=== PATIENT | female | born 1995 | race Hispanic/Latino ===

== ENCOUNTER 2017-06-16 11:00 | Inpatient (IN) | payer MEDICAID ==
[~2017-06-16 11:00] MED LIST: DOCU-116 PO; IBUP-2077 PO; TYL3 PO
[2017-06-19 18:59] LABS: HEMATOCRIT 33.5 % (36-48); MEAN CORPUSCULAR HEMOGLOBIN 28.6 pg (27.0-33.0); MEAN CORPUSCULAR HGB CONC 33.8 g/dL (32.0-36.0); MEAN CORPUSCULAR VOLUME 84.5 fL (79-99); PLATELET COUNT (AUTO) 260 K/uL (130-400); RED BLOOD CELL COUNT(AUTO) 3.97 MIL/uL (4.00-5.50); RED CELL DISTRIBUTION WIDTH 18.3 % (11.0-15.5); WHITE BLOOD COUNT (AUTO) 10.5 K/uL (4.8-10.8)
[2017-06-20] MEDS ORDERED: CEFAZOLIN SODIUM 1 GM VIAL IVP PRN (07:00)
[2017-06-20] MEDS: LACTATED RINGERS 1000ML 1,000 ML IV SCH ×2 (07:38→11:59)
[2017-06-20] MEDS ORDERED: DURAMORPH PF1 MG/ML 10ML AMP IV ONE (07:57)
[2017-06-20] MEDS ORDERED: SUCCINYLCHOLINE 200MG/10ML SYR ONE (08:03)
[2017-06-20] MEDS ORDERED: OXYTOCIN 10 UNIT/1ML 10ML VIAL ONE (08:10)
[2017-06-20] MEDS ORDERED: MIDAZOLAM HCL 1 MG/ML 2ML VIAL ONE (08:11)
[2017-06-20] MEDS ORDERED: ONDANSETRON HCL 4 MG/2 ML VIAL ONE (08:33)
[2017-06-20] MEDS ORDERED: FENTANYL CITRATE PF 50 MCG/1 ML 2ML VIAL ONE (08:44)
[2017-06-20] MEDS ORDERED: OXYTOCIN-LR 20 UNITS/1000 ML 1,000 ML IV PRN (09:06)
[2017-06-20] MEDS ORDERED: PROMETHAZINE HCL 25 MG/ML 1ML AMPULE IM PRN ×2 (09:15→13:45)
[2017-06-20] MEDS ORDERED: SODIUM CHLORIDE 0.9% 10 ML VIAL IVP PRN (09:15)
[2017-06-20] MEDS ORDERED: MEPERIDINE-PF 75 MG/ML SYG IM PRN (09:15)
[2017-06-20] MEDS ORDERED: LACTATED RINGERS 1000ML 1,000 ML IV ONE (11:54)
[2017-06-20] MEDS ORDERED: OXYTOCIN 10 USP UNITS/ML ONE (11:55)
[2017-06-20 12:15] VITALS: BP 109/46
[2017-06-20] MEDS ORDERED: PREN1COM14 PO (12:28)
[2017-06-20] MEDS ORDERED: FERR-82 PO (12:28)
[2017-06-20] MEDS ORDERED: ONDANSETRON HCL 4 MG/2 ML VIAL IVP PRN ×2 (13:45)
[2017-06-20] MEDS ORDERED: DiphenhydrAMINE HCL 50 MG/ML VIAL IVP PRN (13:45)
[2017-06-20] MEDS ORDERED: MORPHINE SULFATE 2 MG/ML 1ML SYG IVP PRN (13:45)
[2017-06-20] MEDS ORDERED: EPHEDRINE SULFATE 50 MG/ML AMPULE IVP PRN (13:45)
[2017-06-20] MEDS ORDERED: METOCLOPRAMIDE 10 MG/2 ML VIAL IVP PRN (13:45)
[2017-06-20] MEDS ORDERED: NALOXONE HCL 0.4 MG/1 ML ML IVP PRN (13:45)
[2017-06-20] MEDS ORDERED: HYDROCODONE/ACETAMINOPHEN 5/325 MG TAB PO PRN ×2 (13:45)
[2017-06-20] MEDS ORDERED: ONDANSETRON HCL 4 MG/2 ML 8 MG in SODIUM CHLORIDE 0.9% 50 ML IVP NR (13:45)
[2017-06-20 15:51] VITALS: BP 106/47
[2017-06-20] MEDS: DEXTROSE 5 %-0.45 % NACL 1,000 ML IV PRN (18:31)
[2017-06-20 19:35] VITALS: BP 115/66
[2017-06-20 23:41] VITALS: BP 111/60
[2017-06-21] MEDS: DEXTROSE 5 %-0.45 % NACL 1,000 ML IV PRN ×2 (01:43→08:21)
[2017-06-21 04:05] VITALS: BP 117/65
[2017-06-21 06:15] LABS: HEPATITIS Bs ANTIGEN SCREEN P Negative (Negative)
[2017-06-21 07:00] LABS: BASOPHILS % (AUTO) 0.3 % (0.0-5.0); EOSINOPHILS % (AUTO) 0.7 % (0.0-8.0); HEMATOCRIT 30.1 % (36-48); LYMPHOCYTES % (AUTO) 15.9 % (21.0-51.0); MEAN CORPUSCULAR HEMOGLOBIN 29.2 pg (27.0-33.0); MEAN CORPUSCULAR HGB CONC 34.3 g/dL (32.0-36.0); MEAN CORPUSCULAR VOLUME 85.1 fL (79-99); MONOCYTES % (AUTO) 5.8 % (3.0-13.0); NEUTROPHILS % (AUTO) 77.3 % (40.0-77.0); PLATELET COUNT (AUTO) 223 K/uL (130-400); RED BLOOD CELL COUNT(AUTO) 3.54 MIL/uL (4.00-5.50); RED CELL DISTRIBUTION WIDTH 18.2 % (11.0-15.5)
[2017-06-21 07:26] VITALS: BP 112/55
[2017-06-21] MEDS ORDERED: LANOLIN 30GM OINTMENT TP PRN (08:45)
[2017-06-21] MEDS: IBUPROFEN 800 MG TAB PO SCH ×4 (08:45→17:56)
[2017-06-21] MEDS ORDERED: DIPHENHYDRAMINE HCL 25 MG CAPSULE PO PRN (08:45)
[2017-06-21] MEDS ORDERED: BISACODYL 10 MG SUPP.RECT RC PRN (08:45)
[2017-06-21] MEDS: SIMETHICONE 80 MG TAB.CHEW PO PRN ×2 (10:07→20:43)
[2017-06-21 11:29] VITALS: BP 102/63
[2017-06-21 15:42] VITALS: BP 115/58
[2017-06-21] MEDS ORDERED: DIPH,PERTUSS(ACELL),TET VAC/PF 0.5 ML VIAL IM ONE (19:00)
[2017-06-21 19:32] VITALS: BP 121/80
[2017-06-21 23:07] VITALS: BP 115/58
[2017-06-22] MEDS: IBUPROFEN 800 MG TAB PO SCH ×3 (00:45→09:49)
[2017-06-22 03:14] VITALS: BP 111/59
[2017-06-22 07:35] VITALS: BP 113/69
[2017-06-22] MEDS: SIMETHICONE 80 MG TAB.CHEW PO PRN (09:49)
[2017-06-22 11:18] VITALS: BP 114/70
== END 2017-06-22 13:30 | disposition home or self-care (01) | DRG 540 ==
LOC: EDSTATUS 11:00 → LDH 06-19 16:43 → UNDOADMIN 06-19 16:43 → LDH 06-20 05:40 → WSH 06-20 12:08
PROVIDERS: ADMIT Specialist; ATTEND Specialist
PROC: 3E0234Z Introduction of Serum, Toxoid and Vaccine into Muscle, Percutaneous Approach (ICD-10-PCS; 2017-06-20)
PROC: 10D00Z1 Extraction of Products of Conception, Low, Open Approach (ICD-10-PCS; principal; 2017-06-20 08:00)
DX: O34.211 Maternal care for low transverse scar from previous cesarean delivery (principal); Z23 Encounter for immunization; Z37.0 Single live birth; Z3A.39 39 weeks gestation of pregnancy
CPT/HCPCS: 36415; 59510; 85025; 85027; 86592; 86850; 86900; 86901; 87340; 90715; A4344; A4606; J0330; J0690; J2250; J2274; J2405; J2590; J3010; J7120

== ENCOUNTER 2021-09-26 08:25 | Emergency (ER) | payer MEDICAID, OTHER ==
[~2021-09-26] VITALS: Ht 149.9 cm; Wt 70.3 kg
[~2021-09-26 08:25] MED LIST changes: -DOCU-116 PO; +FERR-82 PO; -IBUP-2077 PO; +PREN1COM14 PO; -TYL3 PO
[2021-09-26 09:18] LABS: APPEARANCE,URINE Cloudy (CLEAR); BILIRUBIN,URINE Negative (NEGATIVE); COLOR,URINE Dark Yellow (YELLOW); GLUCOSE, URINE (UA) Negative (NEGATIVE); KETONES,URINE 40 mg/dL (NEGATIVE); LEUKOCYTE ESTERASE ,URINE Moderate (NEGATIVE); NITRATE,URINE Negative (NEGATIVE); OCCULT BLOOD,URINE Negative (NEGATIVE); PH,URINE 6.5 (5.0-8.0); PROTEIN,URINE POS 1+ mg/dL (NEGATIVE)
[2021-09-26 09:27] LABS: HCG,QUAL RESULT NEGATIVE (NEGATIVE)
[2021-09-26 09:28] LABS: BACTERIA,URINE Many /HPF (None Seen); RBC,URINE 0-1 /HPF (0-1)
[2021-09-26 09:29] LABS: MUCUS,URINE Few LPF (None Seen); SQUAMOUS EPITHELIAL CELL,UR 0-2 /HPF (0-2)
[2021-09-26] MEDS ORDERED: LORAZEPAM 2 MG/ML 1 ML VIAL IM ONE (09:30)
[2021-09-26] MEDS ORDERED: CEPH500B PO (09:56)
[2021-09-26] MEDS ORDERED: HYD25 PO (09:56)
[2021-09-26 09:58] VITALS: BP 121/82
[2021-09-26] MEDS ORDERED: CEPHALEXIN 500 MG CAPSULE PO ONE (10:00)
== END 2021-09-26 10:04 | disposition home or self-care (01) ==
LOC: EDH 08:25
DX: N39.0 Urinary tract infection, site not specified (principal); F41.9 Anxiety disorder, unspecified; Z79.899 Other long term (current) drug therapy
CPT/HCPCS: 81001; 81025; 87077; 87088; 87186; 96372; 99283; J2060

== ENCOUNTER 2023-01-28 18:40 | Emergency (ER) | payer MEDICAID, OTHER ==
[~2023-01-28] VITALS: Ht 149.9 cm; Wt 73.5 kg
[~2023-01-28 18:40] MED LIST changes: +CEPH500B PO; +HYD25 PO
[2023-01-28 19:40] VITALS: BP 122/77; PULSE 65; RESP 16
[2023-01-28 21:27] LABS: HCG,QUALITATIVE URINE POSITIVE (NEGATIVE)
[2023-01-28 21:28] LABS: APPEARANCE,URINE CLEAR (CLEAR); BILIRUBIN,URINE NEGATIVE (NEGATIVE); COLOR,URINE YELLOW (YELLOW); GLUCOSE, URINE (UA) NEGATIVE (NEGATIVE); KETONES,URINE NEGATIVE (NEGATIVE); LEUKOCYTE ESTERASE ,URINE NEGATIVE Leu/uL (NEGATIVE); NITRATE,URINE NEGATIVE (NEGATIVE); OCCULT BLOOD,URINE NEGATIVE (NEGATIVE); PROTEIN,URINE 20 mg/dL (NEGATIVE)
[2023-01-28 21:30] LABS: ADD UA MICROSCOPIC YES
[2023-01-28 21:36] LABS: MUCUS,URINE RARE LPF (None Seen); SQUAMOUS EPITHELIAL CELL,UR FEW /HPF (0-2)
[2023-01-28] MEDS ORDERED: ACETAMINOPHEN 500 MG TABLET PO ONE (22:00)
[2023-01-28] MEDS ORDERED: METOCLOPRAMIDE 10 MG/2 ML VIAL IM ONE (22:00)
[2023-01-28 22:06] LABS: BASOPHILS # (AUTO) 0.06 K/uL (0.00-0.20); BASOPHILS % (AUTO) 0.6 % (0.0-5.0); EOSINOPHILS # (AUTO) 0.11 K/uL (0.00-0.70); HEMATOCRIT 35.9 % (36-48); IMMATURE GRANULOCYTE ABSOLUTE 0.03 K/uL (0-1); LYMPHOCYTES # (AUTO) 3.4 K/uL (1.0-4.8); LYMPHOCYTES % (AUTO) 31.7 % (21.0-51.0); MEAN CORPUSCULAR HEMOGLOBIN 29.4 pg (27.0-33.0); MEAN CORPUSCULAR HGB CONC 33.4 g/dL (32.0-36.0); MONOCYTES # (AUTO) 0.5 K/uL (0.1-1.0); MONOCYTES % (AUTO) 4.9 % (3.0-13.0); NEUTROPHILS # (AUTO) 6.6 K/uL (1.8-7.7); NEUTROPHILS % (AUTO) 61.5 % (40.0-77.0); PLATELET COUNT (AUTO) 266 K/uL (130-400); RED BLOOD CELL COUNT(AUTO) 4.08 MIL/uL (4.00-5.50); WHITE BLOOD COUNT (AUTO) 10.7 K/uL (4.8-10.8)
[2023-01-28 22:46] LABS: ALBUMIN 3.9 g/dL (3.5-5.0); BILIRUBIN,TOTAL 0.4 mg/dL (0.2-1.0); CREATININE 0.6 mg/dL (0.5-1.5); TOTAL PROTEIN, SERUM 7.9 g/dL (6.0-8.3)
== END 2023-01-28 22:40 | disposition left against medical advice (07) ==
LOC: EDH 18:40
DX: R51.9 Headache, unspecified (principal); R42 Dizziness and giddiness; Z79.899 Other long term (current) drug therapy; Z98.890 Other specified postprocedural states
CPT/HCPCS: 99283; 80053; 84702; 85025; 81001; 81025; 36415; 96372; J2765

== ENCOUNTER 2023-05-07 21:32 | Emergency (ER) | payer MEDICAID ==
[~2023-05-07] VITALS: Ht 149.9 cm; Wt 73.9 kg
[2023-05-07 22:02] LABS: APPEARANCE,URINE CLOUDY (CLEAR); BILIRUBIN,URINE NEGATIVE (NEGATIVE); COLOR,URINE LIGHT-YELLOW (YELLOW); GLUCOSE, URINE (UA) NEGATIVE (NEGATIVE); KETONES,URINE 10 mg/dL (NEGATIVE); LEUKOCYTE ESTERASE ,URINE 75 Leu/uL (NEGATIVE); NITRATE,URINE NEGATIVE (NEGATIVE); OCCULT BLOOD,URINE NEGATIVE (NEGATIVE); PH,URINE 5.5 (5.0-8.0); PROTEIN,URINE NEGATIVE (NEGATIVE); UROBILINOGEN,URINE 0.2 mg/dL (0.2-1.0)
[2023-05-07 22:04] LABS: HCG,QUALITATIVE URINE NEGATIVE (NEGATIVE)
[2023-05-07 22:05] LABS: ADD UA MICROSCOPIC YES
[2023-05-07 22:07] LABS: BACTERIA,URINE MOD /HPF (None Seen); MUCUS,URINE FEW LPF (None Seen); SQUAMOUS EPITHELIAL CELL,UR MANY /HPF (0-2)
[2023-05-07 22:10] LABS: RAPID GROUP A STREP negative (NEGATIVE)
[2023-05-07 22:14] LABS: SARS-CoV-2, RNA, NAAT NEGATIVE SARS CoV-2 (NEGATIVE)
[2023-05-07 22:20] LABS: INFLUENZA TYPE A Negative For Type A (NEGATIVE); INFLUENZA TYPE B Negative For Type B (NEGATIVE)
[2023-05-07] MEDS ORDERED: DEXAMETHASONE SOD PHOSPHATE 4 MG/ML 1ML VIAL IV ONE (22:30)
[2023-05-07] MEDS ORDERED: KETOROLAC 30MG VIAL (30MG/ML) IVP ONE (22:30)
[2023-05-07] MEDS ORDERED: BUTA-271 PO (22:34)
[2023-05-07] MEDS ORDERED: CYCL-309 PO (22:34)
[2023-05-07] MEDS ORDERED: MACR100 PO (22:34)
[2023-05-07 22:36] VITALS: BP 132/68; PULSE 68; RESP 18; O2SAT 100
[2023-05-07] MEDS ORDERED: CYCLOBENZAPRINE HCL 10 MG TABLET ONE (22:38)
[2023-05-07] MEDS ORDERED: CYCLOBENZAPRINE HCL 10 MG TABLET PO ONE (23:00)
== END 2023-05-07 22:42 | disposition home or self-care (01) ==
LOC: EDH 21:32
DX: G44.209 Tension-type headache, unspecified, not intractable (principal); N39.0 Urinary tract infection, site not specified; M26.603 Bilateral temporomandibular joint disorder, unspecified; Z20.822 Contact with and (suspected) exposure to COVID-19
CPT/HCPCS: 99284; 96374; 87635; 96375; 87088; 87880; 87804 ×2; 81001; 81025; J1100; J1885

== ENCOUNTER 2024-06-15 12:30 | Emergency (ER) | payer MEDICAID ==
[~2024-06-15] VITALS: Ht 149.9 cm; Wt 81.6 kg
[~2024-06-15 12:30] MED LIST changes: +BUTA-271 PO; +CYCL-309 PO; +MACR100 PO
--- NOTE | 2024-06-15 12:39 | ERN ---
ED Note History of Present Illness Stated Complaint: CHEST, STOMACH AND LOWER BACK PAIN Time Seen by MD: 12:32 Dictation: PATIENT IS A 29-YEAR-OLD FEMALE COMING IN TODAY WITH COMPLAINTS OF CHEST PAIN AND ABDOMINAL PAIN WITH LOW BACK PAIN SHE HAS HAD FOR ONE WEEK. SHE DENIES FEVER CHILLS NAUSEA VOMITING NO FLANK PAIN AND NO CHANGE IN URINATION. SHE DOES NOT HAVE A PRIMARY CARE DOCTOR HOWEVER SHE SAW HER NEUROLOGIST YESTERDAY WHO ADVISED HER SHE NEEDED AN MRI OF THE LOW SPINE. 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 Allergies: Coded Allergies: No Known Drug Allergies (Unverified Allergy, Unknown, 01/19/15) Home Meds Active Scripts Cyclobenzaprine HCl (Cyclobenzaprine HCl) 10 Mg Tablet, 10 MG PO HSPRN PRN for JAW PAIN, #30 TAB Prov:LOULOU CHURCH NP 05/07/23 Nitrofurantoin/Nitrofuran Mac (Macrobid) 100 Mg Cap, 100 MG PO BID for 7 Days, #14 CAP Prov:LOULOU CHURCH NP 05/07/23 Butalb/Acetaminophen/Caffeine (Esgic 50-325-40 mg Tablet) 50 Mg-325 Mg-40 Mg Tablet, 2 EACH PO Q4PRN PRN for HEADACHE, #40 TAB 2 tablets every 4 hours as needed headache, maximum 6 tablets in 24 hours. Prov:LOULOU CHURCH NP 05/07/23 Cephalexin Monohydrate (Keflex) 500 Mg Cap, 500 MG PO BID for 5 Days, #10 CAP Prov:INES SHAVER MD 09/26/21 Hydroxyzine HCl (Atarax) 25 Mg Tab, 25 MG PO TID for ANXIETY, #20 TAB Prov:INES SHAVER MD 09/26/21 Reported Medications Ferrous Sulfate (Iron) 325 Mg Tablet, 325 MG PO HS, TAB 06/20/17 Cmb#95/Iron/FA/Dha ( + Dha Combo Pack) 1 Each Combo..pkg, 1 EACH PO HS, COMB.PKG 06/20/17 Past Medical History Past Medical History: Migraines Surgical History: Surgical History Other: BREAST REDUCTION Social History: Negative, Lives with family History: Not Applicable : 2 Para: 1 Aborts: 0 RN Note Reviewed/Agreed w/PFSH: Yes Review of System Dictation CONSTITUTIONAL: NEGATIVE EXCEPT FOR HPI HEAD/FACE: NEGATIVE EXCEPT FOR HPI EENT: NEGATIVE EXCEPT FOR HPI RESPIRATORY: NEGATIVE EXCEPT FOR HPI DIFFUSE CHEST PAIN GASTROINTESTINAL/ABDOMINAL: NEGATIVE EXCEPT FOR HPI DIFFUSE ABDOMINAL PAIN GENITOURINARY: NEGATIVE EXCEPT FOR HPI MUSCULOSKELETAL: NEGATIVE EXCEPT FOR HPI LOW BACK PAIN INTEGUMENTARY: NEGATIVE EXCEPT FOR HPI NEUROLOGICAL/PSYCH: NEGATIVE EXCEPT FOR HPI HEMATOLOGIC/LYMPHATIC: NEGATIVE EXCEPT FOR HPI ALL SYSTEMS NEGATIVE, EXCEPT NOTED ABOVE. 13 POINT REVIEW OF SYSTEMS ASSESSED AND ALL NEGATIVE EXCEPT FOR ABOVE. Initial Vital Sign VS Vital Signs Date Time Temp Pulse Resp B/P (MAP) Pulse Ox O2 Delivery O2 Flow Rate FiO2 06/15/24 13:15 97.9 84 122/76 99 Room Air 06/15/24 15:59 18 0 21 Physical Exam Dictation VITAL SIGNS REVIEWED GENERAL APPEARANCE: ALERT, ORIENTED X 3, NO ACUTE DISTRESS, WELL DEVELOPED, NOURISHED. HEAD AND FACE: NON-TRAUMATIC. EYES: PERRL, PINK CONJUNCTIVAS, EYELID NO TRAUMA, ANTERIOR CHAMBER WITH ARCUS SENILIS. EARS: PINNAS INTACT AND NO SIGNS OF TRAUMA OR ERYTHEMA EAR CANALS CLEAR AND NO DISCHARGE TM NO ERYTHEMA NOSE: NO DISCHARGE, NO BLEEDING. OROPHARYNX: MOUTH NORMAL, TONGUE PINK, PHARYNX CLEAR,NO ERYTHEMA, TONSILS NO EXUDATES, NO ABSCESSES NOTED, MUCOUS MEMBRANE MOIST NECK: SUPPLE, NON-TENDER, NO THYROMEGALY, NO MASSES, NO JVD, NO BRUITS BREAST:DEFERRED CHEST:NO TENDERNESS, NO CREPITUS, NO PARADOXICAL MOVEMENT, NO RETRACTIONS LUNGS:CLEAR, WELL-VENTILATED, SYMMETRIC, NO RALES, NO WHEEZING, NO RHONCHI, NO STRIDOR, GOOD BREATH SOUNDS BILATERALLY HEART: REGULAR RATE, REGULAR RHYTHM, NO MURMUR, NO GALLOPS VASCULAR: NO PERIPHERAL EDEMA, ABDOMEN: SOFT, POSITIVE BOWEL SOUNDS, NONDISTENDED, NO GUARDING, NONTENDER, NO REBOUND, NO MASSES NO HEPATOMEGALY, NO SPLENOMEGALY, NO PERRY'S SIGN, NO HERNIAS. NO FOCAL TENDERNESS RECTAL: DEFERRED GENITAL: DEFERRED NEUROLOGICAL: NORMAL SPEECH, MOTOR FUNCTION INTACT, SENSORY FUNCTION INTACT MUSCULOSKELETAL: NECK NONTENDER, FULL RANGE OF MOTION, BACK NONTENDER, FULL RANGE OF MOTION, EXTREMITIES: NONTENDER, FULL RANGE OF MOTION SKIN: COLOR PINK, DRY, NO TURGOR, NO RASH, NO LACERATIONS, NO ABRASIONS, NO CONTUSIONS. LYMPHATIC: DEFERRED Results (Laboratory/Radiology) Laboratory/Radiology Laboratory Tests Test 06/15/24 13:03 06/15/24 15:03 White Blood Count 10.0 K/uL (4.8-10.8) Red Blood Count 4.49 MIL/uL (4.00-5.50) Hemoglobin 11.8 g/dL (12.0-16.0) L Hematocrit 36.9 % (36-48) Mean Corpuscular Volume 82.2 fL (79-99) Mean Corpuscular Hemoglobin 26.3 pg (27.0-33.0) L Mean Corpuscular Hemoglobin Concent 32.0 g/dL (32.0-36.0) Red Cell Distribution Width 14.0 % (11.0-15.5) Platelet Count 325 K/uL (130-400) Mean Platelet Volume 10.3 fL (7.5-10.5) Immature Granulocyte % (Auto) 0.3 % (0-1) Neutrophils (%) (Auto) 76.4 % (40.0-77.0) Lymphocytes (%) (Auto) 14.7 % (21.0-51.0) L Monocytes (%) (Auto) 6.2 % (3.0-13.0) Eosinophils (%) (Auto) 1.7 % (0.0-8.0) Basophils (%) (Auto) 0.7 % (0.0-5.0) Neutrophils # (Auto) 7.6 K/uL (1.8-7.7) Lymphocytes # (Auto) 1.5 K/uL (1.0-4.8) Monocytes # (Auto) 0.6 K/uL (0.1-1.0) Eosinophils # (Auto) 0.17 K/uL (0.00-0.70) Basophils # (Auto) 0.07 K/uL (0.00-0.20) Absolute Immature Granulocyte (auto 0.03 K/uL (0-1) Nucleated Red Blood Cells 0.0 % (0.0-0.19) Sodium Level 139 mmol/L (136-145) Potassium Level 3.9 mmol/L (3.5-5.1) Chloride Level 102 mmol/L (101-111) Carbon Dioxide Level 31 mmol/L (21-32) Blood Urea Nitrogen 5 mg/dL (7-18) L Creatinine 0.7 mg/dL (0.5-1.0) Glomerular Filtration Rate Calc 119 mL/min (>90) Random Glucose 97 mg/dL (70-105) Total Calcium 9.4 mg/dL (8.5-10.1) Troponin I High Sensitivity 6 ng/L (4-50) Lipase 26 U/L (16-77) Urine Color YELLOW (YELLOW) Urine Appearance CLOUDY (CLEAR) H Urine pH 7.0 (5.0-8.0) Urine Specific [place] 1.018 (1.001-1.031) Urine Protein 10 mg/dL (NEGATIVE) H Urine Glucose (UA) NEGATIVE mg/dL (NEGATIVE) Urine Ketones NEGATIVE mg/dL (NEGATIVE) Urine Occult Blood NEGATIVE (NEGATIVE) Urine Nitrate NEGATIVE (NEGATIVE) Urine Bilirubin NEGATIVE mg/dL (NEGATIVE) Urine Urobilinogen 0.2 mg/dL (0.2-1.0) Urine Leukocyte Esterase NEGATIVE [place]/uL Urine RBC 6-10 /HPF (0-1) H Urine WBC 2-5 /HPF (0-1) H Urine Squamous Epithelial Cells MANY /HPF (0-2) Urine Bacteria RARE /HPF (None Seen) Urine HCG, Qualitative NEGATIVE (NEGATIVE) Labs Reviewed?: Yes EKG Comment: EKG NORMAL SINUS RHYTHM/HEART RATE 97/AXIS NORMAL/NO ECTOPY ED Course ED Course Orders Procedure Category Date Status Time Cbc With Differential LAB 06/15/24 Complete 12:37 Troponin I High LAB 06/15/24 Complete Sensitivity 12:37 ,Urine Test LAB 06/15/24 Complete 12:37 Urinalysis Profile LAB 06/15/24 Complete 12:37 12 Lead Ekg Tracing- EKG 06/15/24 Complete Technical 12:37 Lipase LAB 06/15/24 Complete 12:37 Basic Metabolic Panel LAB 06/15/24 Complete 12:37 Vital Signs Date Time Temp Pulse Resp B/P (MAP) Pulse Ox O2 Delivery O2 Flow Rate FiO2 06/15/24 15:59 97.9 84 18 118/71 99 Room Air* 0 21 06/15/24 13:15 97.9 84 122/76 99 Room Air 1555 CARDIAC ABDOMINAL WORKUP X-RAY NO UTI NO CARDIAC DISEASE WE WILL HAVE PATIENT FOLLOW UP FOR ACUTE EXACERBATION OF HER LOW BACK PAIN WITH HER PRIMARY CARE DOCTOR. HEART Score Response (Comments) Value History: Low suspicion (0) 0 EKG: Normal 0 Age: < 45yrs (0) 0 Risk Factors: No known risk factors (0) 0 Initial Troponin: Normal limit (0) 0 Total 0 Medical Decision Making MDM MDM: DIFFERENTIAL DIAGNOSIS: ACS/AMI/UTI/ELECTROLYTE IMBALANCE/DEHYDRATION RATIONALE: TESTS CONSIDERED AND ORDERED SECONDARY TO SHARED DECISION MAKING INCLUDE: LABS/EKG/RADIOLOGY PREVIOUS OUTSIDE RECORDS REVIEWED: OLD ER VISITS. RISK OF COMPLICATION AND/OR MORBIDITY OR MORTALITY OF PATIENT MANAGEMENT: NONE MEDICATIONS-PER MEDICATION RECONCILIATION NEED FOR HOSPITALIZATION: PATIENT DOES NOT MEET CRITERIA FOR HOSPITALIZATION. NO NEED FOR EMERGENCY MAJOR/MINOR SURGERY: NO THERE ARE NO SOCIAL CONCERNS WITH THIS PATIENT. PRESCRIPTION DRUG MANAGEMENT NONE PRESCRIPTIONS WILL INCLUDE SYMPTOMATIC CARE PATIENT'S PRIOR EXTERNAL MEDICAL RECORDS FROM OTHER ER VISITS WERE REVIEWED BY ME INDICATED. PRIOR TESTING AND RESULTS FROM PREVIOUS VISITS WERE REVIEWED. PRIOR TESTS WERE TAKEN INTO ACCOUNT WITH MEDICAL DECISION MAKING AND RESOURCE UTILIZATION, INDEPENDENT HISTORIAN/HISTORIANS WERE USED TO OBTAIN COMPLETE MEDICAL HISTORY. I INDEPENDENTLY INTERPRETED THE TEST THAT WERE PERFORMED, RESULTS WERE REVIEWED BY ME AND CONSIDERED FINDINGS ON RADIOLOGY IF ORDERED. MEDICAL MANAGEMENT AND EXAMINATION INTERPRETATION DISCUSSIONS WERE HAD BY ME WITH OTHER QUALIFIED HEALTHCARE PROFESSIONALS INDICATED FOR THE PATIENT'S CARE. DX & DISP Disposition: Discharge Departure Impression: Primary Impression: Atypical chest pain Additional Impression: Chronic lower back pain Condition: Stable Additional Instructions: FOLLOW-UP WITH PRIMARY CARE PROVIDER IN 1 TO 2 DAYS. TAKE MEDICATIONS DIRE CTED HERE IN THE EMERGENCY ROOM. OKAY TO CONTINUE HOME MEDICATIONS UNLESS OTHERWISE DISCUSSED DURING YOUR VISIT IN THE EMERGENCY ROOM TODAY. RETURN TO YOUR NEAREST EMERGENCY ROOM IF SYMPTOMS WORSEN OR IF THERE IS NO IMPROVEMENT. CALL 911 IF YOU NEED IMMEDIATE ASSISTANCE. TAKE TYLENOL OR MOTRIN [id number] NEEDED AND IF NO CONTRAINDICATIONS ARE PRESENT. INCREASE ORAL HYDRATION. A WOUND CULTURE OR URINE CULTURE WAS ORDERED HERE IN THE EMERGENCY ROOM DEPARTMENT PLEASE FOLLOW-UP WITH PRIMARY CARE PROVIDER AND ADVISE THEM TO GET REPEAT PORTS FROM OUR FACILITY. IF YOU HAD ANY RACHID WRAP/SPLINTS THAT WERE APPLIED HERE, PLEASE DO NOT REMOVE THEM UNTIL YOU SEE YOUR PRIMARY CARE OR SPECIALTY. CONTINUE ALL MEDICATIONS AND TREATMENTS FROM YOUR DOCTOR, FOLLOW UP WITH HIM IN 1-2 DAYS. Referrals: ROMELIA HUDSON MD (PCP) Time of Disposition: 15:55 I have reviewed the case, and I agree with, Diagnosis and Plan LOULOU CHURCH NPb 28, 2025 12:39 ALEXANDRE GRIJALVA DO Jun 15, 2024 16:43
--- NOTE | 2024-06-15 13:23 | EKG ---
[facility] Test Date: 2024-06-15 Test Time: 13:18:17 Pat Name: CAN REIDDepartment: [facility] Room: Gender: F Senior Front End Web Developer: [id number] : 1995 Requested By: LOULOU CHURCH Order Number: [id number] Reading MD: Cat Peralta Measurements Intervals [place] Rate: 97 P: 68 TN: 129 QRS: 82 QRSD: 104 T: 28 QT: 348 QTc: 442 Interpretive Statements Sinus rhythm No previous ECG available for comparison Electronically Signed On 06-16-2024 08:45:54 OUTDOOR STUDIES DIRECTOR by Cat Peralta Please click the below link to view image of tracing.
[2024-06-15 13:41] LABS: BASOPHILS # (AUTO) 0.07 K/uL (0.00-0.20); BASOPHILS % (AUTO) 0.7 % (0.0-5.0); EOSINOPHILS # (AUTO) 0.17 K/uL (0.00-0.70); EOSINOPHILS % (AUTO) 1.7 % (0.0-8.0); HEMATOCRIT 36.9 % (36-48); IMMATURE GRANULOCYTE ABSOLUTE 0.03 K/uL (0-1); LYMPHOCYTES # (AUTO) 1.5 K/uL (1.0-4.8); LYMPHOCYTES % (AUTO) 14.7 % (21.0-51.0); MEAN CORPUSCULAR HEMOGLOBIN 26.3 pg (27.0-33.0); MEAN CORPUSCULAR VOLUME 82.2 fL (79-99); MONOCYTES # (AUTO) 0.6 K/uL (0.1-1.0); MONOCYTES % (AUTO) 6.2 % (3.0-13.0); NEUTROPHILS # (AUTO) 7.6 K/uL (1.8-7.7); NEUTROPHILS % (AUTO) 76.4 % (40.0-77.0); PLATELET COUNT (AUTO) 325 K/uL (130-400); RED BLOOD CELL COUNT(AUTO) 4.49 MIL/uL (4.00-5.50)
[2024-06-15 13:52] LABS: CREATININE 0.7 mg/dL (0.5-1.0); POTASSIUM 3.9 mmol/L (3.5-5.1)
--- NOTE | 2024-06-15 14:47 | NUR ---
PT MOVED INTO [facility] FROM ER LOBBY ASSUMED CARE AT THIS TIME
[2024-06-15 15:39] LABS: APPEARANCE,URINE CLOUDY (CLEAR); BILIRUBIN,URINE NEGATIVE (NEGATIVE); COLOR,URINE YELLOW (YELLOW); GLUCOSE, URINE (UA) NEGATIVE (NEGATIVE); KETONES,URINE NEGATIVE (NEGATIVE); LEUKOCYTE ESTERASE ,URINE NEGATIVE Leu/uL (NEGATIVE); NITRATE,URINE NEGATIVE (NEGATIVE); OCCULT BLOOD,URINE NEGATIVE (NEGATIVE); PROTEIN,URINE 10 mg/dL (NEGATIVE); UROBILINOGEN,URINE 0.2 mg/dL (0.2-1.0)
[2024-06-15 15:40] LABS: HCG,QUALITATIVE URINE NEGATIVE (NEGATIVE)
[2024-06-15 15:41] LABS: ADD UA MICROSCOPIC YES
[2024-06-15 15:44] LABS: BACTERIA,URINE RARE /HPF (None Seen); MUCUS,URINE RARE LPF (None Seen); SQUAMOUS EPITHELIAL CELL,UR MANY /HPF (0-2)
[2024-06-15 15:59] VITALS: BP 118/71; PULSE 84; RESP 18; TEMP 97.8; O2SAT 99
== END 2024-06-15 16:02 | disposition home or self-care (01) ==
LOC: EDH 12:30
DX: R07.89 Other chest pain (principal); G89.29 Other chronic pain; M54.50 Low back pain, unspecified; G43.909 Migraine, unspecified, not intractable, without status migrainosus; Z79.899 Other long term (current) drug therapy; Z98.890 Other specified postprocedural states
CPT/HCPCS: 36415; 80048; 81001; 81025; 83690; 84484; 85025; 93005; 99284